=== PATIENT | male | born 1950 | race Caucasian/White ===

== ENCOUNTER 2020-09-14 15:54 | Outpatient (REF) | payer SELFPAY ==
[2020-09-14 16:39] LABS: Cholesterol 144 mg/dL
[2020-09-14 16:50] LABS: SARS COV2 IgG Negative (Negative)
== END 2020-09-14 15:55 | disposition home or self-care (01) ==
LOC: HO.LNC 15:54
PROVIDERS: Visit Provider Pathology Anatomic Pathology & Clinical Pathology
DX: Z20.828 Contact with and (suspected) exposure to other viral communicable diseases (principal)
CPT/HCPCS: 82465; 86769